=== PATIENT | male | born 1965 | race Caucasian/White ===

== ENCOUNTER 2023-11-23 14:07 | Emergency (ER) | payer MEDICARE, MEDICAID, SELFPAY ==
[2023-11-23 14:07] VITALS: BP 159/106; PULSE 94; RESP 16; TEMP 36.3; O2SAT 96; BMI 31.6
--- NOTE | 2023-11-23 14:23 | RAD_ITS ---
EXAM: XR RIGHT SHOULDER COMPLETE, 2 OR MORE VIEWS CLINICAL INDICATION: fall TECHNIQUE: Two or more views of the right shoulder. COMPARISON: No relevant prior studies available. FINDINGS: BONES/JOINTS: Mild degenerative findings of the AC joint. No acute fracture. No subluxation. Normal alignment. No sclerotic or destructive changes observed. SOFT TISSUES: Unremarkable. No soft tissue swelling or gas. No radiopaque foreign body. RAD/Shoulder min 2 Views IMPRESSION: No acute findings in the right shoulder. Electronically Signed: Jerome Mata MD at 14:34 EDT ,
== END 2023-11-23 16:15 | disposition left against medical advice (07) ==
LOC: ED 16:24
PROVIDERS: PCP Family Medicine
DX: Z53.21 Procedure and treatment not carried out due to patient leaving prior to being seen by health care provider (principal)
CPT/HCPCS: 73030